=== PATIENT | female | born 1995 | race African-American/Black ===

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

== ENCOUNTER 2017-12-22 18:58 | Emergency (ER) | payer OTHER ==
[~2017-12-22] VITALS: Ht 160 cm; Wt 70.8 kg
[~2017-12-22 18:58] MED LIST changes: +IBUPROFEN800 M1 PO; +PRENATAL 19 TA1 EAC1 PO
[2017-12-22 19:08] VITALS: BP 131/92
--- NOTE | 2017-12-22 20:03 | ED GI/GU/ABDOMINAL COMPLAINT ---
History of Present Illness General Chief Complaint: General Adult Stated Complaint: PT IS HAVING BACK PAIN ,FEEL LIKE KIDNEY INFECTION Source: patient Exam Limitations: no limitations Vital Signs & Intake/Output Vital Signs & Intake/Output Vital Signs Date Time Temp Pulse Resp B/P B/P Pulse O2 O2 Flow FiO2 Mean Ox Delivery Rate 12/22 1908 97.4 83 16 131/92 97 Room Air Allergies Coded Allergies: No Known Allergies (06/27/17) Reconcile Medications Ibuprofen 800 MG TABLET 800 MG PO Q6P PRN UTERINE CRAMPING [id number]/Iron Fumarate/FA/Dss ( 19 Tablet) (Unknown Strength) TABLET ( Unknown Dose) PO DAILY SUPPLEMENT (Reported) Triage Note: PT TO ER C/C LEFT FLANK PAIN X URINARY HESITENCY X 2 DAYS. HX OF PYELONEPHRITIS/KIDNEY STONES IN PAST. DENIES N/V/D. Triage Nurses Notes Reviewed? yes ? N Is pt currently ? No HPI: 22F PMH recurrent nephrolithiasis, pyelonephritis, with 2 days of left deep flank discomfort, 5/10, non-radiating, intermittent. She is presently experiencing it but it is mild. Reports a sensation of incomplete emptying on urination, but denies frequency, dysuria, hematuria, or any other urinary complaints. She denies fever, chills, decreased appetite, chest pain, abdominal pain, constipation, or any other systemic symptom. She is otherwise well. Past History Travel History Traveled to [place] past 21 day No Medical History Any Pertinent Medical History? see below for history Neurological: NONE EENT: NONE Cardiovascular: NONE Respiratory: NONE Gastrointestinal: NONE Hepatic: NONE Renal: nephrolithiasis, pyelonephritis Musculoskeletal: NONE Psychiatric: NONE Endocrine: NONE Blood Disorders: anemia Cancer(s): NONE MAIL INSERTER/Reproductive: NONE Surgical History Surgical History: N Psychosocial History What is your primary language Estonian Tobacco Use: Never used Family History Hx Contributory? No Review of Systems Review of Systems Constitutional: Reports: no symptoms. EENTM: Reports: no symptoms. Respiratory: Reports: no symptoms. Cardiovascular: Reports: no symptoms. GI: Reports: no symptoms. Genitourinary: Reports: no symptoms. Musculoskeletal: Reports: no symptoms. Skin: Reports: no symptoms. Neurological/Psychological: Reports: no symptoms. Hematologic/Endocrine: Reports: no symptoms. Immunologic/Allergic: Reports: no symptoms. All Other Systems: Reviewed and Negative Physical Exam Physical Exam General Appearance: well developed/nourished, no apparent distress Head: atraumatic, normal appearance Eyes: Bilateral: normal appearance. Ears, Nose, Throat, Mouth: hearing grossly normal, moist mucous membrane Neck: normal inspection, supple, full range of motion Respiratory: normal breath sounds, chest non-tender, no respiratory distress Cardiovascular: regular rate/rhythm Gastrointestinal: soft, non-tender Back: normal inspection, No CVA tendernesss b/l Extremities: normal range of motion Neurologic/Psych: awake, alert, normal gait, normal mood/affect Skin: intact, normal color, warm/dry Core Measures ACS in differential dx? No Sepsis Present: No Sepsis Focused Exam Completed? No Progress Differential Diagnosis: appendicitis, biliary colic, bowel obstruction, diverticulitis, kidney stone, UTI/pyelo Plan of Care: Orders Procedure Date/time Status URINE 12/22 1899 Complete URINALYSIS 12/22 1899 Complete Laboratory Tests 12/22/171916: Urine Color YEL, Urine Clarity CLEAR, Urine pH 6.5, Ur Specific [place] 1.020, Urine Protein NEG, Urine Ketones NEG, Urine Nitrite NEG, Urine Bilirubin NEG, Urine Urobilinogen 0.2, Ur Leukocyte Esterase NEG, Ur Microscopic EXAM NOT REQUIRED, Urine Hemoglobin NEG, Urine Glucose NEG, Urine Test NEGATIVE UA is normal, low suspicion for obstructing stone or UTI. Will discharge home with outpatient follow up. Initial ED EKG: none Departure Departure Disposition: HOME OR SELF CARE Condition: Stable Clinical Impression Primary Impression: Nephrolithiasis Referrals: Unknown (PCP/Family) Additional Instructions: Follow up with your PCP. Drink plenty of water. If you experience fever, chills, painful or bloody urination, change in urinary habits, or any other new or worsening symptoms, return to emergency department. You can use Tylenol or Ibuprofen for pain. Departure Forms: Customer Survey General Discharge Information
== END 2017-12-22 20:07 ==
LOC: ERH 18:58
DX: N20.0 Calculus of kidney (principal)
CPT/HCPCS: 81003; 81025